=== PATIENT | female | born 1955 | race Caucasian/White ===

== ENCOUNTER → 2021-12-09 | Outpatient (CLI) | payer OTHER ==
[~2021-12-09] MED LIST: AMBIEN10 MG PO; COLACE 100MG C100 MG PO; DILTIAZEM 24HR180 M1 PO; NAPROXEN500 MG PO; NORTRIPTYLINE H25 MG PO; NYAMYC60 GM TP; OMEPRAZOLE20 MG PO; PERCOCET 5-3251 EACH PO; PRAVASTATIN SOD40 MG PO; TYLENOL W/CODEIN1 E1 PO; VITAMIN D1000 UNI1 PO; WOMEN'S DAILY1 EACH PO; XARELTO10 MG PO; ZYLOPRIM 100 M100 MG PO
== END ==
LOC: HEART 5 15:08
DX: R07.9 Chest pain, unspecified (principal); R06.02 Shortness of breath; I08.1 Rheumatic disorders of both mitral and tricuspid valves
CPT/HCPCS: 93306